=== PATIENT | female | born 1965 | race Two or more races ===

== ENCOUNTER → 2017-02-21 | Outpatient (CLI) | payer OTHER ==
[~2017-02-21] MED LIST: CETI10TA2 PO; IOHEXOL 300 MG/ML 100ML VIAL. IV ONE; LISI2.5T PO
--- NOTE | 2017-02-21 14:14 | KCIC ---
PQRS STATEMENT One or more of the following individualized dose reduction techniques were utilized for this study: 1.Automated exposure control 2.Adjustment of the mA and/or kV according to patient size 3.Use of iterative reconstruction technique CT NECK WITH CONTRAST HISTORY:Reason For Study Reason: SUBMANDIBULAR SIALOLITHIASIS. SWELLING LT SIDE OF NECK / Spl. Instructions: 95cc Omni 300 / History: COMPARISON: None TECHNIQUE: 2.5 mm contiguous axial images were obtained from the region of the paranasal sinuses through the thoracic inlet after the administration of iodinated intravenous contrast material. Additional sagittal and coronal reconstructions were performed. FINDINGS: Visualized intracranial contents are within normal limits. Globes orbits are unremarkable. Paranasal sinuses and mastoid air cells are clear. The parotid glands, submandibular glands, and sublingual glands are unremarkable. Specifically, there is no evidence for sialolith. There appears to have been surgical resection of the right lobe of the thyroid. The left lobe appears normal. There is no cervical adenopathy. Lung apices are clear. Vascular structures are within normal limits. No destructive osseous lesion is identified. Impression: - Normal appearance of the salivary glands. Specifically, no evidence for salad. - No cervical adenopathy or signs of inflammation. Electronically signed by: Cullen Azevedo (Feb 21, 2017 14:13:14)
== END | disposition home or self-care (01) ==
LOC: KCIC CT 09:59
PROVIDERS: ATTEND Otolaryngology
DX: K11.5 Sialolithiasis (principal); R22.1 Localized swelling, mass and lump, neck
CPT/HCPCS: 70491; Q9967